=== PATIENT | female | born 1980 | race African-American/Black ===

== ENCOUNTER 2018-04-30 21:48 | Emergency (ER) | payer SELFPAY ==
[~2018-04-30] VITALS: Ht 160 cm; Wt 58.1 kg
[2018-04-30 22:03] VITALS: Ht 160 cm; Wt 58.1 kg
[2018-05-01 00:57] VITALS: BP 122/75
== END 2018-05-01 00:57 | disposition home or self-care (01) ==
LOC: ED 21:48
DX: S83.92XA Sprain of unspecified site of left knee, initial encounter (principal); J45.909 Unspecified asthma, uncomplicated; X58.XXXA Exposure to other specified factors, initial encounter; Y93.89 Activity, other specified; Y92.89 Other specified places as the place of occurrence of the external cause; Y99.8 Other external cause status
CPT/HCPCS: J1885; Q0092